=== PATIENT | female | born 1985 | race Caucasian/White ===

== ENCOUNTER → 2020-09-13 07:56 | Outpatient (BNVA) | payer OTHER, SELFPAY | PROVIDERS: Visit Provider Advanced Practice Midwife ==

== ENCOUNTER 2021-01-25 08:39 | Outpatient (REF) | payer OTHER, SELFPAY ==
[2021-01-25 12:17] LABS: Alanine Aminotransferase 10 U/L (0-31); Anion Gap 11 (12-20); Aspartate Amino Transferase 19 U/L (5-31); Blood Urea Nitrogen 14 mg/dL (9-16); Calcium 9.1 mg/dL (8.4-10.2); Carbon Dioxide 26 mmol/L (22-29); Chloride 107 mmol/L (96-108); Cholesterol 173 mg/dL; Estimated Glomerular Filt Rate > 60; Glucose Fasting 89 mg/dL (60-99); HDL Cholesterol 72 mg/dL; LDL Cholesterol Calculated 88 mg/dl; Potassium 4.5 mmol/L (3.3-5.1); Sodium 139 mmol/L (135-145); Triglycerides 67 mg/dL
== END 2021-01-25 08:40 | disposition home or self-care (01) ==
LOC: HO.HMGCLDS 08:39
PROVIDERS: PCP Internal Medicine; Visit Provider Internal Medicine
DX: Z00.00 Encounter for general adult medical examination without abnormal findings (principal); I10 Essential (primary) hypertension
CPT/HCPCS: 36415; 80048; 80061; 84450; 84460

== ENCOUNTER → 2021-09-19 07:57 | Outpatient (BNVA) | payer OTHER, SELFPAY | PROVIDERS: PCP Internal Medicine; Visit Provider Advanced Practice Midwife ==

== ENCOUNTER 2022-09-21 08:50 | Outpatient (REF) | payer OTHER, SELFPAY ==
[2022-09-21 11:21] LABS: MANUAL DIFF FLAG NO
[2022-09-21 11:33] LABS: Basophils Percent Auto 0.4 % (0-2); Eosinophils Absolute Auto 0.4 X10*3/uL (0.0-0.4); Eosinophils Percent Auto 5.2 % (0-4); Hematocrit 42.5 % (37.0-47.0); Hemoglobin 14.1 g/dl (12.0-16.0); Imm Gran Abs Auto 0.02 X10*3/uL (0.00-0.03); Imm Gran Pct Auto 0.3 % (0.0-0.4); Lymphocytes Absolute Auto 2.5 X10*3/uL (1.2-4.9); Mean Corpuscular HGB Conc 33.2 g/dl (31.0-35.0); Mean Corpuscular Hemoglobin 29.8 pg (27.0-33.0); Mean Corpuscular Volume 89.9 fL (80.0-98.0); Mean Platelet Volume 9.7 fL (9.4-12.3); Monocytes Absolute Auto 0.4 X10*3/uL (0.1-1.2); Monocytes Percent Auto 6.3 % (2-11); Neutrophils Absolute Auto 3.6 x10*3/uL (2.0-8.3); Neutrophils Percent Auto 51.8 % (45-73); Platelet Count 302 X10*3/uL (160-400); Red Blood Count 4.73 X10*6/uL (4.20-5.50); Red Cell Distribution Width 11.2 % (11.0-16.0); White Blood Count 6.9 X10*3/uL (4.8-10.8)
[2022-09-21 11:57] LABS: Alanine Aminotransferase 14 U/L (0-31); Anion Gap 12 (12-20); Aspartate Amino Transferase 18 U/L (5-31); Blood Urea Nitrogen 14 mg/dL (9-16); Calcium 9.7 mg/dL (8.4-10.2); Carbon Dioxide 26 mmol/L (22-29); Chloride 105 mmol/L (96-108); Cholesterol 203 mg/dL; Estimated Glomerular Filt Rate > 60; Glucose Fasting 90 mg/dL (60-99); HDL Cholesterol 74 mg/dL; LDL Cholesterol Calculated 117 mg/dl; Potassium 4.5 mmol/L (3.3-5.1); Sodium 138 mmol/L (135-145); Triglycerides 62 mg/dL
[2022-09-21 12:14] LABS: TSH reflex Free T4 1.56 uIU/mL (0.32-4.0); Vitamin D 25-OH Total 38.3 ng/mL (>30)
== END 2022-09-21 08:51 | disposition home or self-care (01) ==
LOC: HO.HMGCLDS 08:50
PROVIDERS: PCP Internal Medicine; Visit Provider Internal Medicine
DX: Z00.01 Encounter for general adult medical examination with abnormal findings (principal); L40.9 Psoriasis, unspecified; Z91.09 Other allergy status, other than to drugs and biological substances
CPT/HCPCS: 36415; 80048; 80061; 82306; 84443; 84450; 84460; 85025

== ENCOUNTER 2022-11-22 11:13 | Outpatient (REF) | payer OTHER, SELFPAY ==
[2022-12-06 13:39] LABS: HPV 16 RNA NOT DETECTED (NOT DETECTED); HPV mRNA E6/E7 rflx Detected (Not Detected)
== END 2022-11-22 11:14 | disposition home or self-care (01) ==
LOC: HO.LNP 11:13
PROVIDERS: PCP Internal Medicine; Visit Provider Advanced Practice Midwife
DX: Z01.419 Encounter for gynecological examination (general) (routine) without abnormal findings (principal); Z11.51 Encounter for screening for human papillomavirus (HPV)
CPT/HCPCS: 87624; 87625; 88142

== ENCOUNTER 2023-01-01 08:57 | Outpatient (REF) | payer OTHER, SELFPAY | END 2023-01-01 08:58 | disposition home or self-care (01) | LOC: HO.LNP 08:57 | PROVIDERS: PCP Internal Medicine; Visit Provider Obstetrics & Gynecology | DX: R87.810 Cervical high risk human papillomavirus (HPV) DNA test positive (principal); R87.610 Atypical squamous cells of undetermined significance on cytologic smear of cervix (ASC-US) | CPT/HCPCS: 57454; 88305 ==

== ENCOUNTER → 2023-01-29 08:46 | Outpatient (BNVA) | payer OTHER, SELFPAY | PROVIDERS: PCP Internal Medicine; Visit Provider Obstetrics & Gynecology | DX: R87.610 Atypical squamous cells of undetermined significance on cytologic smear of cervix (ASC-US) (principal); R87.810 Cervical high risk human papillomavirus (HPV) DNA test positive; Z30.09 Encounter for other general counseling and advice on contraception | CPT/HCPCS: 99212 ==

== ENCOUNTER 2023-09-24 10:34 | Outpatient (AMB) | payer OTHER, SELFPAY ==
--- NOTE | 2023-09-24 11:17 | A.OFFPC_ITS ---
Vital Signs 09/24/23 11:19 Height 5 ft 5 in Weight 166 lb BMI 27.6 BP 110/80 Blood Pressure Location Lt brachial Position Sitting Pulse 90 Pulse Source Pulse Oximeter Pulse Oximetry (%) 97 Oxygen Delivery Method Room Air Intake Visit Reasons: PE Intake Note: Pt is here today for her PE: Last papsmear 11/22/22 Is last menstrual period known: Yes Last menstrual period: 09/15/23 Allergies environmental Allergy (Intermediate, Uncoded 09/24/23 11:26) Nasal congestion Medication List - Last Reconciled 09/24/23 by Lilian Joseph MD apremilast (Otezla) 30 mg PO BID clobetasol 0.05% mL topical fexofenadine 60 mg PO BID Tobacco use date assessed: 09/24/23 Dental Screening Dental Screen Date: 09/24/23 Did you have a dental visit in the last 12 months?: Yes Did you have a dental problem in the last 6 months where you did not have access to dental care?: No Was dental information given to patient?: Patient has dentist HPI PE HPI Details 37-year-old lady here today for physical exam. She had a cervical cancer screening done November 2022 which showed ASCUS, currently being seen at [facility]. She sees Dr. Espinoza for psoriasis of scalp, currently on Otezla and clobetasol shampoo. She has been feeling well otherwise, with no complaints at present time. [facility], [facility] Medical History (Updated 09/24/23 @ 11:40 by Lilian Joseph MD) Vaccine refused by patient Psoriasis of scalp Environmental allergies Surgical History History of placement of ear tubes Family History Maternal Aunt Ovarian cancer Thyroid disorder Brother Substance use disorder Maternal Uncle Mental health disorder Social History Housing: House Alcohol intake: current Alcohol intake frequency: holidays/special occasions only Patient Tobacco Use Status: Never used Tobacco e-Cigarette/Vaping Use: Never Used service: No Current occupational status: employed Current occupation: [employer] Sexual orientation: Straight/Heterosexual Gender identity: Female Cognitive needs: No Hearing needs: No Vision needs: No Female Reproductive History Menstrual Age of Menarche: 13 Date of last menstrual period: 09/15/23 Questionnaire PHQ-9 Over the last 2 weeks, how often have you been bothered by any of the following problems? 1. Little interest or pleasure in doing things: not at all 2. Feeling down, depressed, or hopeless: not at all 3. Trouble falling or staying asleep, or sleeping too much: several days 4. Feeling tired or having little energy: nearly every day 6. Feeling bad about yourself - or that you are a failure or have let yourself or your family down: not at all 7. Trouble concentrating on things, such as reading the newspaper or watching television: not at all 8. Moving or speaking so slowly that other people could have noticed. Or the opposite - being so fidgety or restless that you have been moving around a lot more than usual: not at all 9. Thoughts that you would be better off or of hurting yourself in some way: not at all Depression Screening Interpretation: Negative Depression Screening Done: Yes 47387 - PHQ-9 Billing: Yes Source: Developed by Drs. Serg Martinez, Mag Rodriguez, Mohan Jain and colleagues, with an educational paradise from [employer]. Thrive Questionnaire Date Thrive assessed: 09/24/23 I am a: Patient What is your living situation today?: I have a steady place to live Within the past 12 months, did the food you bought not last and you didn't have the money to get more?: Never true Within the past 12 months, did you worry whether your food would run out before you got money to buy more?: Never true Do you have trouble paying for medicines?: No Do you have trouble getting transportation to medical appointments?: No Do you have trouble paying your heating and electricity bill?: No Do you have trouble taking care of your child, family member or friend?: No Do you have trouble with day-to-day activities such as bathing, preparing meals, shopping, managing finances, etc.?: No Are you currently unemployed and looking for a job?: No Are you interested in more education?: No THRIVE Score: 0 AUDIT C Alcohol Use Questionnaire (AUDIT-C) 1. How often do you have a drink containing alcohol?: 2-4 times a month 2. How many drinks containing alcohol do you have on a typical day when you are drinking?: 1 or 2 3. How often do you have six or more drinks on one occasion?: Never Total Score: 2 RUSSELL-7 AMB Questionnaire RUSSELL-7 Date RUSSELL - 7 assessed: 09/24/23 Feeling nervous, anxious, or on edge: 2 = More than half the days Not being able to stop or control worryin = More than half the days Worrying too much about different things: 2 = More than half the days Trouble relaxin = Several days Being so restless that it is hard to sit still: 0 = Not at all Becoming easily annoyed or irritable: 1 = Several days Feeling afraid as if something awful might happen: 1 = Several days Total RUSSELL-7 score (0-4 normal; 5-9 mild; 10-14 moderate; 15-21 severe): 9 Source: Developed by Drs. Serg Martinez, Mag Rodriguez, Mohan Jain and colleagues, with an educational paradise from [employer]. RUSSELL-7 Assessment Billing RUSSELL-7 Assessment Tool: RUSSELL-7 Assessment 26023 Review of Systems Const Denies body aches, Denies fatigue, Denies fever(s) and Denies headache(s) Eyes Denies change in vision ENT Denies dizziness, Denies headache(s), Denies nasal congestion and Denies nasal discharge Card Denies chest pain, Denies lightheadedness, Denies palpitations and Denies dyspnea Resp Denies chest congestion, Denies cough, Denies dyspnea and Denies wheezing GI Denies abdominal pain, Denies change in bowel habits and Denies heartburn Denies urinary frequency, Denies dysuria and Denies urinary urgency Musc Reports no additional complaints Skin/Breast Reports as per HPI, Denies breast swelling, Denies breast skin changes, Denies breast pain and Denies breast mass Neuro Denies dizziness and Denies headache(s) Psych Reports as per HPI Endo Denies fatigue, Denies polydipsia, Denies polyuria and Denies palpitations August/Lymph Denies easy bruising Aller/Immun Denies seasonal rhinorrhea and Denies wheezing Physical exam (Primary Care) Vital Signs: Last Vital Signs Pulse 90 02/05/24 11:19 BP 110/80 09/24/23 11:19 Pulse Ox 97 09/24/23 11:19 Oxygen Delivery Method Room Air 09/24/23 11:19 BMI result Body Mass Index 27.6 Tobacco/Smoking Status: Tobacco use Status Tobacco use date assessed 09/24/23 09/24/23 11:23 Patient Tobacco Use Status Never used Tobacco 09/24/23 11:23 e-Cigarette/Vaping Use Never Used 09/24/23 11:23 Depression Screening Interpretation: Negative Thrive Assessment: Date of Thrive Assessment Date Thrive assessed 09/24/23 09/24/23 11:23 Const General: healthy appearing, comfortable and no acute distress Nutritional Appearance: overweight Orientation/consciousness: patient oriented x3 HENMT Head: Yes normocephalic Ears: external ears normal, TM's normal bilaterally and EAC's normal General nose exam: Normal external nose present and No nasal discharge present Face and sinus: Yes face symmetric Mouth: Normal oral and palatal mucosa present, oropharynx normal and moist mucous membranes Eyes General: appearance normal, both eyes and all related structures Pupils: Equal, round and reactive pupils present EOM: EOMs intact bilaterally Neck Neck: Yes full ROM, Yes no lymphadenopathy and Yes supple Thyroid: Thyroid normal Chest Chest palpation & inspection: normal inspection of the chest Breast/axilla inspection: normal inspection of the breasts Breast/axilla palpation: normal palpation of the breasts Resp Effort & Inspection: normal respiratory effort and able to speak in complete sentences Auscultation: clear to auscultation bilaterally Cardio Palpation: normal PMI Rate: regular rate Rhythm: regular rhythm Heart sounds: S1 normal heart sound present and S2 normal heart sound present GI Inspection: Yes normal to inspection Palpation (GI): Soft to palpation, nontender, no guarding and no masses Auscultation: normal bowel sounds General: Yes no CVA tenderness and Yes deferred (Has appointment with her OB next week) Back/Spine/Pelvis Back: no CVA tenderness Cervical Spine: normal cervical lordosis and cervical ROM normal Thoracic/Lumbar Spine: thoracic and lumbar spine normal to inspection and thoraco-lumbar ROM normal Skin General skin exam: no rashes or lesions noted Neuro General: patient oriented x3, gait normal, moves all extremities, Normal light touch and pain sensation, no focal motor deficits and CN's II-XI intact bilaterally Cranial nerves: Yes Equal, round and reactive pupils present Cognition (Neuro): normal cognition Gait exam (Neuro): Normal gait present Extrem General: Yes normal to inspection, Yes full ROM, Yes no joint enlargement, Yes no clubbing, cyanosis or edema, Yes no calf tenderness and Yes normal gait Psych Appearance: grossly normal and well kempt Mental Status: mental status grossly normal Speech and movement: Normal speech and movement present Affect: normal affect Thought process: Normal thought process present Assessment and Plan Assessment & Plan (1) Annual visit for general adult medical examination with abnormal findings: Code(s): Z00.01 - Encounter for general adult medical examination with abnormal findings Plan: Will check appropriate labs. Recommended dental visit every 6 months and regular eye exams, at least every 2 years. Take adequate calcium in diet and vitamin-D 3 at 2000 IU per cap once a day, in addition to weight-bearing exer cises to help maintain good muscle tone and weight control. Instructed to do self-breast exam, and recommended to get yearly mammogram, starting at age 40. Goes to [facility] for her routine Pap and pelvic exam, currently up-to-date. Declines getting vaccines. (2) Psoriasis of scalp: Comment: ff'd by Dr Espinoza Code(s): L40.9 - Psoriasis, unspecified Plan: Currently on Otezla and clobetasol shampoo, followed by Dr. Espinoza (3) Environmental allergies: Comment: ff'd by Dr Dante Duong on oral allergy Code(s): Z91.09 - Other allergy status, other than to drugs and biological substances (4) Vaccine refused by patient: Code(s): Z28.20 - Immunization not carried out because of patient decision for unspecified reason Orders: Orders Hemoglobin and Hematocrit 09/24/23 Z00.01 - Encounter for general adult medical examination with abnormal findings, Z13.220 - Encounter for screening for lipoid disorders, Z13.1 - Encounter for screening for diabetes mellitus, L40.9 - Psoriasis, unspecified Alanine Aminotransferase 09/24/23 Z00.01 - Encounter for general adult medical examination with abnormal findings, Z13.220 - Encounter for screening for lipoid disorders, Z13.1 - Encounter for screening for diabetes mellitus, L40.9 - Psoriasis, unspecified Aspartate Amino Transferase 09/24/23 Z00.01 - Encounter for general adult medical examination with abnormal findings, Z13.220 - Encounter for screening for lipoid disorders, Z13.1 - Encounter for screening for diabetes mellitus, L40.9 - Psoriasis, unspecified Glucose Fasting 09/24/23 Z00.01 - Encounter for general adult medical examination with abnormal findings, Z13.220 - Encounter for screening for lipoid disorders, Z13.1 - Encounter for screening for diabetes mellitus, L40.9 - Psoriasis, unspecified Vitamin D 25-OH Total 09/24/23 Z00.01 - Encounter for general adult medical examination with abnormal findings, Z13.220 - Encounter for screening for lipoid disorders, Z13.1 - Encounter for screening for diabetes mellitus, L40.9 - Psoriasis, unspecified Lipid Panel 09/24/23 Z00.01 - Encounter for general adult medical examination with abnormal findings, Z13.220 - Encounter for screening for lipoid disorders, Z13.1 - Encounter for screening for diabetes mellitus, L40.9 - Psoriasis, unspecified Coding Level of Care Code Est Pt Prev Care 18-39y(11266) Diagnoses Annual visit for general adult medical examination with abnormal findings Z00.01 Psoriasis of scalp L40.9 Environmental allergies Z91.09 Vaccine refused by patient Z28.20 Additional Codes RUSSELL-7 Assessment Billing - RUSSELL-7 Assessment Tool: RUSSELL-7 Assessment 78801 ([id number])
[2023-09-24 11:19] VITALS: BP 110/80; PULSE 90; O2SAT 97; BMI 27.6
== END 2023-09-24 11:53 | disposition home or self-care (01) ==
PROVIDERS: Visit Provider Internal Medicine
DX: Z00.00 Encounter for general adult medical examination without abnormal findings (principal); L40.9 Psoriasis, unspecified; Z91.09 Other allergy status, other than to drugs and biological substances; Z28.20 Immunization not carried out because of patient decision for unspecified reason
CPT/HCPCS: 99395

== ENCOUNTER 2023-09-24 11:42 | Outpatient (REF) | payer OTHER, SELFPAY ==
[2023-09-24 13:33] LABS: Hematocrit 40.4 % (37.0-47.0); Hemoglobin 13.6 g/dl (12.0-16.0)
[2023-09-24 14:08] LABS: Alanine Aminotransferase 16 U/L (0-31); Aspartate Amino Transferase 19 U/L (5-31); Cholesterol 206 mg/dL (<200); Glucose Fasting 88 mg/dL (60-99); HDL Cholesterol 88 mg/dL (>40); LDL Cholesterol Calculated 108 mg/dL (<100); Triglycerides 54 mg/dL (<150); Vitamin D 25-OH Total 86.5 ng/mL (>30)
== END 2023-09-24 11:43 | disposition home or self-care (01) ==
LOC: HO.HMGCLDS 11:42
PROVIDERS: PCP Internal Medicine; Visit Provider Internal Medicine
DX: Z00.01 Encounter for general adult medical examination with abnormal findings (principal); L40.9 Psoriasis, unspecified; Z13.1 Encounter for screening for diabetes mellitus; Z13.220 Encounter for screening for lipoid disorders
CPT/HCPCS: 36415; 80061; 82306; 82947; 84450; 84460; 85014; 85018

== ENCOUNTER 2023-12-04 09:31 | Outpatient (REF) | payer OTHER, SELFPAY ==
[2023-12-07 23:03] LABS: HPV 16 RNA NOT DETECTED (NOT DETECTED); HPV mRNA E6/E7 rflx Detected (Not Detected)
== END 2023-12-04 09:32 | disposition home or self-care (01) ==
LOC: HO.LNP 09:31
PROVIDERS: PCP Internal Medicine; Visit Provider Advanced Practice Midwife
DX: Z01.419 Encounter for gynecological examination (general) (routine) without abnormal findings (principal); Z11.51 Encounter for screening for human papillomavirus (HPV)
CPT/HCPCS: 87624; 87625; 88142; 99395

== ENCOUNTER 2023-12-04 09:31 | Outpatient (AMB) | payer OTHER, SELFPAY ==
--- NOTE | 2023-12-04 09:33 | MHC.OFFVIS ---
Intake Vital Signs 12/04/23 09:38 Height 5 ft 5 in Weight 166 lb BMI 27.6 BP 100/62 Intake Visit Reasons: Annual Oak Tanner: Oak Tanner Present (Anastasia) Allergies environmental Allergy (Intermediate, Uncoded 12/04/23 09:42) Nasal congestion Is last menstrual period known: Yes Last menstrual period: 11/05/23 HPI HPI Comments History of Present Illness Details She is a premenopausal woman presenting for annual examination. Doing well with no concerns. She tries to eat healthy and stays active with exercise. Regular monthly menses. Currently has a menstrual cycle today. Currently is sexually active, same long-term monogamous relationship. She denies vaginal itching and irritation. STI screening offered; she declined. She feels safe at home. Denies family history of breast or colon cancer. Family history of ovarian cancer. Last pap smear ascus positive HPV, couple biopsies were negative in 2022. [facility] Medical History Vaccine refused by patient Psoriasis of scalp Environmental allergies Surgical History History of placement of ear tubes Family History Maternal Aunt Ovarian cancer Thyroid disorder Brother Substance use disorder Maternal Uncle Mental health disorder Social History Housing: House Alcohol intake: current Alcohol intake frequency: holidays/special occasions only Patient Tobacco Use Status: Never used Tobacco e-Cigarette/Vaping Use: Never Used service: No Current occupational status: employed Current occupation: [employer] Sexual orientation: Straight/Heterosexual Gender identity: Female Cognitive needs: No Hearing needs: No Vision needs: No Female Reproductive History Menstrual Age of Menarche: 13 Date of last menstrual period: 11/05/23 Total pregnancies: 0 Date of last pap smear: 11/22/22 (ascus +hpv) History of abnormal pap smear: Yes (01/09 colpo) Review of Systems Const All systems reviewed & are unremarkable except as noted in HPI and below Reports as per HPI Eyes Reports no additional complaints ENT Reports no additional complaints Card Reports no additional complaints Resp Reports no additional complaints GI Reports as per HPI and Reports no additional complaints Reports as per HPI Musc Reports no additional complaints Skin/Breast Reports as per HPI Neuro Reports no additional complaints Psych Reports no additional complaints Endo Reports no additional complaints August/Lymph Reports no additional complaints Aller/Immun Reports no additional complaints Physical Exam Vital Signs: Last Vital Signs BP 100/62 12/04/23 09:38 BMI result Body Mass Index 27.6 Const General: cooperative, healthy appearing, no acute distress, well developed and alert Orientation/consciousness: patient oriented x3 HEENT Head: Yes normal to inspection Eyes General: appearance normal, both eyes and all related structures Neck Neck: Yes normal visual inspection Thyroid: Thyroid normal Chest Chest palpation & inspection: normal inspection of the chest and other (no puckering, dimpling, peau de orange, retraction, discharge, masses) Breast/axilla inspection: normal inspection of the breasts Breast/axilla palpation: normal palpation of the breasts Resp Effort & Inspection: normal respiratory effort GI Inspection: Yes normal to inspection Palpation (GI): Soft to palpation Rectal Exam - Female: deferred General: Yes bladder normal to palpation External Female Exam: normal external appearance and normal appearance of the urethra Speculum Exam - Vagina: normal appearance of the vagina, normal palpation, normal vaginal discharge and vaginal bleeding Speculum Exam - Cervix: normal appearance of the cervix and normal palpation Bimanual exam- vagina & uterus: normal bimanual exam, normal palpation, uterine size normal, bladder normal to palpation, normal palpation and non-tender Bimanual Exam- Adnexa, other: no masses OB/external & speculum: vaginal bleeding Skin General skin exam: no rashes or lesions noted Rashes: no rashes Neuro General: patient oriented x3 Cognition (Neuro): normal cognition Extrem General: Yes normal to inspection Psych Attitude: cooperative Thought process: Normal thought process present Assessment & Plan Assessment & Plan (1) Encounter for well woman exam with routine gynecological exam: Code(s): Z01.419 - Encounter for gynecological examination (general) (routine) without abnormal findings Plan Discussed: Current recommendations for pap smears per ASCCP guidelines. Await Pap results for plan of care. Breast awareness and periodic breast exams. Maintain a healthy lifestyle including a well balanced diet and routine exercise. Use condoms for STI and prevention. Patient verbalizes understanding and agrees to the plan of care. She was given opportunity to ask questions and all questions were answered to the best of my ability. RTO in one year for annual tester electronic scale examination. This note is constructed using voice recognition software. While every effort has been made to ensure accuracy, consultant rn errors may have been included. Coding Level of Care Code Est Pt Prev Care 18-39y(38917) Diagnoses Encounter for well woman exam with routine gynecological exam Z01.419
[2023-12-04 09:38] VITALS: BP 100/62; BMI 27.6
== END 2023-12-04 10:09 | disposition home or self-care (01) ==
PROVIDERS: PCP Internal Medicine; Visit Provider Advanced Practice Midwife
DX: Z01.419 Encounter for gynecological examination (general) (routine) without abnormal findings (principal)
CPT/HCPCS: 99395

== ENCOUNTER 2024-01-08 09:05 | Outpatient (AMB) | payer OTHER, SELFPAY ==
--- NOTE | 2024-01-08 09:32 | MHC.OFFVIS ---
Vital Signs 01/08/24 09:41 Height 5 ft 5 in Weight 165 lb 5.547 oz BMI 27.5 BP 110/62 Intake Visit Reasons: Colposcopy Dog Food Dough Mixer Required: No Information Interpreted: non-clinical & clinical Guest Relations Representative: Guest Relations Representative Present (Yolanda Sweeney MARYAdriana) Accompanied by: Self / Same As Patient Allergies environmental Allergy (Intermediate, Uncoded 01/08/24 09:42) Nasal congestion Is last menstrual period known: Yes Last menstrual period: 01/02/24 HPI Comments Details: Presenting for colposcopy regarding ascus/HPV E6 E7 positive PFSH Medical History Vaccine refused by patient Psoriasis of scalp Environmental allergies Surgical History History of placement of ear tubes Family History Maternal Aunt Ovarian cancer Thyroid disorder Brother Substance use disorder Maternal Uncle Mental health disorder Social History Housing: House Alcohol intake: current Alcohol intake frequency: holidays/special occasions only Patient Tobacco Use Status: Never used Tobacco e-Cigarette/Vaping Use: Never Used service: No Current occupational status: employed Current occupation: [employer] Sexual orientation: Straight/Heterosexual Gender identity: Female Cognitive needs: No Hearing needs: No Vision needs: No Female Reproductive History Menstrual Age of Menarche: 13 Date of last menstrual period: 01/02/24 Review of Systems Const All systems reviewed & are unremarkable except as noted in HPI and below Reports as per HPI and Reports no additional complaints GI Reports no additional complaints Reports no additional complaints Physical Exam Vital Signs: Last Vital Signs BP 110/62 01/08/24 09:41 BMI result Body Mass Index 27.5 Office Procedures Colposcopy Colposcopy: Pre-Procedure Counseling: Before beginning the procedure, I conducted comprehensive counseling with the patient. We thoroughly discussed the procedure itself, including its details, alternatives, and all associated risks. This included but not limited to the following complications such as bleeding, infection, and injury to the vagina, bladder, and vessels, as well as the potential need for transfusion with all its associated risks. Subsequently, the patient sign the consent. Pap smear result: Ascus/HPV E6/E7 positive Urine test in office = Negative Procedure: During the procedure, the following steps were performed: A speculum was inserted, and acetic acid was applied. Colposcopy was conducted, allowing visualization of the transformation zone. Acetowhite lesions were identified at the 5+6+9+11+12+1+3 o'clock position. Cervical biopsies were obtained from the 5+6+9+11+12+1+3o'clock position, followed by an endocervical curettage (ECC). Vaginoscopy of the upper vagina revealed no evidence of aceto-white lesions. Hemostasis was achieved using Monsel solution, and the patient tolerated the procedure well. Post-Procedure Instructions: The patient was advised to promptly contact the office or the after hours answering service or go to the emergency room if experiencing a temperature exceeding 100.4?F, abdominal pain, nausea/vomiting, or bleeding. Additionally, the patient was instructed to abstain from vaginal intercourse and bathtub use. The patient confirmed understanding of these instructions. Discharge Instructions: The patient was instructed to schedule a follow-up appointment in 2 weeks for further evaluation and management. Please note that this note was generated using a voice recognition program, and errors may have occurred during soldering machine feeder. [id number] of cervix including upper vagina with biopsy and ECC Procedure code (CPT) selection complete Results AMB Test Urine AMB Test Urine Negative Last Edit by Yolanda Sweeney CMA on 01/08/24 09:43 Results Reviewed Results Reviewed: Laboratory Last Values [facility]st Clinic Negative 01/08/24 09:43 Assessment & Plan Assessment & Plan (1) ASCUS with positive high risk HPV cervical: Code(s): R87.610 - Atypical squamous cells of undetermined significance on cytologic smear of cervix (ASC-US); R87.810 - Cervical high risk human papillomavirus (HPV) DNA test positive Category: Medical Plan: Colposcopy done, see procedure note Orders: Orders AMB HCG Urine Test Today Z32.02 - Encounter for test, result negative AMB Colposcopy Today R87.610 - Atypical squamous cells of undetermined significance on cytologic smear of cervix (ASC-US), R87.810 - Cervical high risk human papillomavirus (HPV) DNA test positive Coding Level of Care Code Procedure Only Diagnoses ASCUS with positive high risk HPV cervical R87.610; R87.810 CPT Codes Colposcopy - CPT: 65666-Kshmevilw of cervix including upper vagina with biopsy and ECC ([id number])
[2024-01-08 09:41] VITALS: BP 110/62; BMI 27.5
== END 2024-01-08 11:22 | disposition home or self-care (01) ==
PROVIDERS: PCP Internal Medicine; Visit Provider Obstetrics & Gynecology
DX: R87.610 Atypical squamous cells of undetermined significance on cytologic smear of cervix (ASC-US) (principal); R87.810 Cervical high risk human papillomavirus (HPV) DNA test positive; Z32.02 Encounter for pregnancy test, result negative
CPT/HCPCS: 57454

== ENCOUNTER 2024-01-08 09:05 | Outpatient (REF) | payer OTHER, SELFPAY | END 2024-01-08 09:06 | disposition home or self-care (01) | LOC: HO.LNP 09:05 | PROVIDERS: PCP Internal Medicine; Visit Provider Obstetrics & Gynecology | DX: R87.610 Atypical squamous cells of undetermined significance on cytologic smear of cervix (ASC-US) (principal); R87.810 Cervical high risk human papillomavirus (HPV) DNA test positive | CPT/HCPCS: 57454; 81025; 88305; 88342; 88360 ==

== ENCOUNTER 2024-02-13 07:22 | Outpatient (AMB) | payer OTHER, SELFPAY ==
--- NOTE | 2024-02-13 07:29 | MHC.OFFVIS ---
Vital Signs 02/13/24 07:31 Height 5 ft 5 in Weight 165 lb 5.547 oz BMI 27.5 BP 116/72 Intake Visit Reasons: colpo results Legal Director Required: No Information Interpreted: non-clinical & clinical Accompanied by: Self / Same As Patient Allergies environmental Allergy (Intermediate, Uncoded 02/13/24 07:32) Nasal congestion Is last menstrual period known: Yes Last menstrual period: 01/28/24 HPI Comments Details: Presenting post colpo for follow-up. The patient is doing well with no complaints. The pathology showed the following: A. Endocervix, curettage: Squamous and endocervical glandular epithelium; negative for dysplasia. B. Cervix, 1:00, biopsy: Squamous and endocervical glandular mucosa; negative for dysplasia. C. Cervix, 3:00, biopsy: Squamous and endocervical glandular mucosa; negative for dysplasia. D. Cervix, 5:00, biopsy: Squamous and endocervical glandular mucosa with inflammation and reactive changes; negative for dysplasia. E. Cervix, 6:00, biopsy: Squamous and endocervical glandular mucosa with inflammation and reactive changes; negative for dysplasia. F. Cervix, 9:00, biopsy: Squamous and endocervical glandular mucosa with inflammation and reactive changes; negative for dysplasia. G. Cervix, 11:00, biopsy: Squamous and endocervical glandular mucosa with inflammation and reactive changes; negative for dysplasia. H. Cervix, 12:00, biopsy: Squamous and endocervical glandular mucosa; negative for dysplasia. [facility] Medical History Vaccine refused by patient Psoriasis of scalp Environmental allergies Surgical History History of placement of ear tubes Family History Maternal Aunt Ovarian cancer Thyroid disorder Brother Substance use disorder Maternal Uncle Mental health disorder Social History Housing: House Alcohol intake: current Alcohol intake frequency: holidays/special occasions only Patient Tobacco Use Status: Never used Tobacco e-Cigarette/Vaping Use: Never Used service: No Current occupational status: employed Current occupation: [employer] Sexual orientation: Straight/Heterosexual Gender identity: Female Cognitive needs: No Hearing needs: No Vision needs: No Female Reproductive History Menstrual Age of Menarche: 13 Date of last menstrual period: 01/28/24 Review of Systems Const All systems reviewed & are unremarkable except as noted in HPI and below Reports as per HPI and Reports no additional complaints GI Reports no additional complaints Reports no additional complaints Assessment & Plan Assessment & Plan (1) ASCUS with positive high risk HPV cervical: Code(s): R87.610 - Atypical squamous cells of undetermined significance on cytologic smear of cervix (ASC-US); R87.810 - Cervical high risk human papillomavirus (HPV) DNA test positive Category: Medical Plan: Discussed with the patient the pathology results of the colposcopy biopsies & endocervical curettage ( negative). Discussed with the patient the sensitivity specificity, positive and negative predictive value in detecting cervical cancer in addition discussed the regression, persistence and progression rates. Recommended co-testing in 12 months, if cytology and or HPV are abnormal will proceed was colposcopy biopsy and endocervical curettage. Instructions given to the patient to schedule a co test appointment in 1 year. All questions answered the patient verbalized understanding. Coding Level of Care Code Est Pt Level 3 (86258) Diagnoses ASCUS with positive high risk HPV cervical R87.610; R87.810
[2024-02-13 07:31] VITALS: BP 116/72; BMI 27.5
== END 2024-02-13 07:48 | disposition home or self-care (01) ==
PROVIDERS: PCP Internal Medicine; Visit Provider Obstetrics & Gynecology
DX: R87.610 Atypical squamous cells of undetermined significance on cytologic smear of cervix (ASC-US) (principal); R87.810 Cervical high risk human papillomavirus (HPV) DNA test positive
CPT/HCPCS: 99213

== ENCOUNTER → 2024-02-13 07:22 | Outpatient (BNVA) | payer OTHER, SELFPAY | PROVIDERS: PCP Internal Medicine; Visit Provider Obstetrics & Gynecology | DX: R87.610 Atypical squamous cells of undetermined significance on cytologic smear of cervix (ASC-US) (principal); R87.810 Cervical high risk human papillomavirus (HPV) DNA test positive | CPT/HCPCS: 99212 ==

== ENCOUNTER 2024-09-29 08:18 | Outpatient (AMB) | payer OTHER, SELFPAY ==
--- NOTE | 2024-09-29 08:48 | MHC.PC.OV ---
Vital Signs 09/29/24 09:04 Height 5 ft 5 in Weight 167 lb BMI 27.8 BP 102/78 Blood Pressure Location Rt brachial Position Sitting Respiration 15 Pulse 67 Pulse Source Pulse Oximeter Temp 98.1 F Temp Source Oral Pulse Oximetry (%) 100 Oxygen Delivery Method Room Air Intake Visit Reasons: PE Intake Note: Pt is here today for her PE: Last papsmear 12/05/23 Is last menstrual period known: Yes Last menstrual period: 09/26/24 Allergies environmental Allergy (Intermediate, Uncoded 09/29/24 09:15) Nasal congestion Medication List - Last Reconciled 09/29/24 by Lilian Joseph MD apremilast (Otezla) 30 mg PO BID fexofenadine 60 mg PO BID Tobacco use date assessed: 09/29/24 Dental Screening Dental Screen Date: 09/29/24 Did you have a dental visit in the last 12 months?: Yes Did you have a dental problem in the last 6 months where you did not have access to dental care?: No Was dental information given to patient?: Patient has dentist HPI PE HPI Details 38-year-old lady with history of psoriasis currently on Otezla, followed by Dr. Espinoza, has seasonal environmental allergies currently taking fexofenadine and receiving sublingual immunotherapy from [facility], here today for physical exam. She states that her scalp psoriasis has cleared up with taking Otezla and has decrease dose now to just once a day. She goes to [facility] for her routine Pap and pelvic exam, up-to-date with cervical cancer screening and is scheduled again for November this year for her routine Pap and pelvic exam. Does not get any vaccines. Has been feeling well with no new complaints at present time [facility] Medical History Vaccine refused by patient Psoriasis of scalp Environmental allergies Surgical History History of placement of ear tubes Family History Maternal Aunt Ovarian cancer Thyroid disorder Brother Substance use disorder Maternal Uncle Mental health disorder Social History Housing: House Alcohol intake: current Alcohol intake frequency: holidays/special occasions only Patient Tobacco Use Status: Never used Tobacco e-Cigarette/Vaping Use: Never Used service: No Current occupational status: employed Current occupation: [employer] Sexual orientation: Straight/Heterosexual Gender identity: Female Cognitive needs: No Hearing needs: No Vision needs: No Female Reproductive History Menstrual Age of Menarche: 13 Date of last menstrual period: 09/26/24 Questionnaire PHQ-9 Over the last 2 weeks, how often have you been bothered by any of the following problems? 1. Little interest or pleasure in doing things: not at all 2. Feeling down, depressed, or hopeless: not at all 3. Trouble falling or staying asleep, or sleeping too much: not at all 4. Feeling tired or having little energy: more than half the days 5. Poor appetite or overeating: not at all 6. Feeling bad about yourself - or that you are a failure or have let yourself or your family down: not at all 7. Trouble concentrating on things, such as reading the newspaper or watching television: not at all 8. Moving or speaking so slowly that other people could have noticed. Or the opposite - being so fidgety or restless that you have been moving around a lot more than usual: not at all 9. Thoughts that you would be better off or of hurting yourself in some way: not at all Total score: 2 Depression Screening Interpretation: Negative Depression Screening Done: Yes 05364 - PHQ-9 Billing: Yes Source: Developed by Drs. Serg Martinez, Mag Rodriguez, Mohan Jain and colleagues, with an educational paradise from [employer]. Thrive Questionnaire Date Thrive assessed: 09/22/24 I am a: Patient What is your living situation today?: I have a steady place to live Within the past 12 months, did the food you bought not last and you didn't have the money to get more?: Never true Within the past 12 months, did you worry whether your food would run out before you got money to buy more?: Never true Do you have trouble paying for medicines?: No Do you have trouble getting transportation to medical appointments?: No Do you have trouble paying your heating and electricity bill?: No Do you have trouble taking care of your child, family member or friend?: No Do you have trouble with day-to-day activities such as bathing, preparing meals, shopping, managing finances, etc.?: No Are you currently unemployed and looking for a job?: No Are you interested in more education?: No Please select the resources that you would like help with: None Currently or been in a relationship where the following occur: No concerns reported THRIVE Score: 0 AUDIT C Alcohol Use Questionnaire (AUDIT-C) 1. How often do you have a drink containing alcohol?: 2-4 times a month 2. How many drinks containing alcohol do you have on a typical day when you are drinking?: 1 or 2 3. How often do you have six or more drinks on one occasion?: Never Total Score: 2 RUSSELL-7 AMB Questionnaire RUSSELL-7 Date RUSSELL - 7 assessed: 09/29/24 Feeling nervous, anxious, or on edge: 1 = Several days Not being able to stop or control worryin = Several days Worrying too much about different things: 1 = Several days Trouble relaxin = Not at all Being so restless that it is hard to sit still: 0 = Not at all Becoming easily annoyed or irritable: 1 = Several days Feeling afraid as if something awful might happen: 0 = Not at all Total RUSSELL-7 score (0-4 normal; 5-9 mild; 10-14 moderate; 15-21 severe): 4 Source: Developed by Drs. Serg Martinez, Mag Rodriguez, Mohan Jain and colleagues, with an educational paradise from [employer]. RUSSELL-7 Assessment Billing RUSSELL-7 Assessment Tool: RUSSELL-7 Assessment 63663 Review of Systems Const Denies body aches, Denies fatigue, Denies fever(s) and Denies headache(s) Eyes Denies change in vision ENT Details: Gets dental cleaning every six-months Denies dizziness, Denies headache(s), Denies nasal congestion and Denies nasal discharge Card Denies chest pain, Denies lightheadedness, Denies palpitations and Denies dyspnea Resp Denies chest congestion, Denies cough, Denies dyspnea and Denies wheezing GI Denies abdominal pain, Denies change in bowel habits and Denies heartburn Denies urinary frequency, Denies dysuria and Denies urinary urgency Musc Reports no additional complaints Skin/Breast Denies breast swelling, Denies breast skin changes, Denies breast pain and Denies breast mass Neuro Denies dizziness and Denies headache(s) Psych Reports no additional complaints Endo Denies fatigue, Denies polydipsia, Denies polyuria and Denies palpitations August/Lymph Denies easy bruising Aller/Immun Denies seasonal rhinorrhea and Denies wheezing Physical exam (Primary Care) Vital Signs: Last Vital Signs Temp 98.1 F 09/29/24 09:04 Pulse 67 09/29/24 09:04 Resp 15 09/29/24 09:04 BP 102/78 09/29/24 09:04 Pulse Ox 100 09/29/24 09:04 Oxygen Delivery Method Room Air 09/29/24 09:04 BMI result Body Mass Index 27.8 Tobacco/Smoking Status: Tobacco use Status Tobacco use date assessed 09/29/24 09/29/24 08:49 Patient Tobacco Use Status Never used Tobacco 09/29/24 08:48 e-Cigarette/Vaping Use Never Used 09/29/24 08:48 PHQ-9: PHQ-9 Score PHQ-9: Total score 2 09/29/24 09:08 Depression Screening Interpretation: Negative Thrive Assessment: Date of Thrive Assessment Date Thrive assessed 09/22/24 09/29/24 08:48 Currently or been in a relationship where the following occur: No concerns reported Advance Care Planning discussion: Completed/Scanned Date of discussion: 09/29/24 Who was present: Patient Forms completed: Health Care Proxy Time spent: 16-45 minutes Actual minutes spent: 2 Const General: comfortable and no acute distress Nutritional Appearance: overweight Orientation/consciousness: patient oriented x3 HENMT Head: Yes normocephalic and No scalp lesion Ears: external ears normal, TM's normal bilaterally and EAC's normal General nose exam: Normal external nose present and No nasal discharge present Face and sinus: Yes face symmetric Mouth: Normal oral and palatal mucosa present, oropharynx normal and moist mucous membranes Eyes General: appearance normal, both eyes and all related structures Pupils: Equal, round and reactive pupils present EOM: EOMs intact bilaterally Neck Neck: Yes full ROM, Yes no lymphadenopathy and Yes supple Thyroid: Thyroid normal Chest Chest palpation & inspection: normal inspection of the chest Breast/axilla inspection: normal inspection of the breasts Breast/axilla palpation: normal palpation of the breasts Resp Effort & Inspection: normal respiratory effort and able to speak in complete sentences Auscultation: clear to auscultation bilaterally Cardio Palpation: normal PMI Rate: regular rate Rhythm: regular rhythm Heart sounds: S1 normal heart sound present and S2 normal heart sound present GI Inspection: Yes normal to inspection Palpation (GI): Soft to palpation, nontender, no guarding and no masses Auscultation: normal bowel sounds General: Yes no CVA tenderness and Yes deferred (Has appointment with her OB next week) Back/Spine/Pelvis Back: no CVA tenderness Cervical Spine: normal cervical lordosis and cervical ROM normal Thoracic/Lumbar Spine: thoracic and lumbar spine normal to inspection and thoraco-lumbar ROM normal Skin General skin exam: no rashes or lesions noted Neuro General: patient oriented x3, gait normal, moves all extremities, Normal light touch and pain sensation, no focal motor deficits and CN's II-XI intact bilaterally Cranial nerves: Yes Equal, round and reactive pupils present Cognition (Neuro): normal cognition Gait exam (Neuro): Normal gait present Extrem General: Yes normal to inspection, Yes full ROM, Yes no joint enlargement, Yes no clubbing, cyanosis or edema, Yes no calf tenderness and Yes normal gait Psych Appearance: grossly normal and well kempt Mental Status: mental status grossly normal Speech and movement: Normal speech and movement present Affect: normal affect Thought process: Normal thought process present Coding Level of Care Code Est Pt Prev Care 18-39y(64419) Diagnoses Annual visit for general adult medical examination with abnormal findings Z00.01 Environmental allergies Z91.09 Psoriasis of scalp L40.9 Encounter for counseling regarding advance directives Z71.89 Additional Codes PHQ-9 - 35933 - PHQ-9 Billing: Yes ([id number]) RUSSELL-7 Assessment Billing - RUSSELL-7 Assessment Tool: RUSSELL-7 Assessment 69436 ([id number]) Vital Signs *Quality* - Advance Care Planning discussion: Completed/Scanned ([id number]) Vital Signs *Quality* - Time spent: 16-45 minutes ([id number]) Assessment & Plan Assessment & Plan (1) Annual visit for general adult medical examination with abnormal findings: Code(s): Z00.01 - Encounter for general adult medical examination with abnormal findings Plan: Will check appropriate labs. Continue with rest dental visit every 6 months and regular eye exams, at least every 2 years. Take adequate calcium in diet and vitamin-D 3 at 2000 IU per cap once a day, in addition to weight-bearing exercises to help maintain good muscle tone and weight control. Instructed to do self-breast exam, and recommended to get yearly mammogram, starting at age 40. Has an appointment already with [facility] for her routine Pap and pelvic exam scheduled later this year. Immunization declined (2) Environmental allergies: Comment: ff'd by Dr Dante Duong on oral allergy Code(s): Z91.09 - Other allergy status, other than to drugs and biological substances Category: Medical Plan: Currently receiving sublingual immunotherapy at [facility], takes fexofenadine as needed for seasonal allergy (3) Psoriasis of scalp: Comment: ff'd by Dr Espinoza Code(s): L40.9 - Psoriasis, unspecified Category: Medical Plan: Currently on Otezla with dose now decreased just once a day, followed by [facility] (4) Encounter for counseling regarding advance directives: Code(s): Z71.89 - Other specified counseling Plan: Initiated the conversation about Advanced Directives. Advanced Directives help patients prepare for current and future decisions about their medical treatment and place of care. Discussed with patient that it is a process where a patients current condition and prognosis are reviewed, their wishes for information regarding their illness are elicited, and likely medical dilemmas are presented and options discussed. Healthcare proxy form completed today. The form can be amended as needed, reviewed yearly and make changes as needed Orders: Orders Complete Blood Count Auto Diff Today L40.9 - Psoriasis, unspecified, Z00.01 - Encounter for general adult medical examination with abnormal findings, Z13.1 - Encounter for screening for diabetes mellitus, Z13.220 - Encounter for screening for lipoid disorders, Z71.89 - Other specified counseling, Z83.49 - Family history of other endocrine, nutritional and metabolic diseases, Z91.09 - Other allergy status, other than to drugs and biological substances Alanine Aminotransferase Today L40.9 - Psoriasis, unspecified, Z00.01 - Encounter for general adult medical examination with abnormal findings, Z13.1 - Encounter for screening for diabetes mellitus, Z13.220 - Encounter for screening for lipoid disorders, Z71.89 - Other specified counseling, Z83.49 - Family history of other endocrine, nutritional and metabolic diseases, Z91.09 - Other allergy status, other than to drugs and biological substances TSH reflex Free T4 Today L40.9 - Psoriasis, unspecified, Z00.01 - Encounter for general adult medical examination with abnormal findings, Z13.1 - Encounter for screening for diabetes mellitus, Z13.220 - Encounter for screening for lipoid disorders, Z71.89 - Other specified counseling, Z83.49 - Family history of other endocrine, nutritional and metabolic diseases, Z91.09 - Other allergy status, other than to drugs and biological substances Basic Metabolic Panel Fasting Today L40.9 - Psoriasis, unspecified, Z00.01 - Encounter for general adult medical examination with abnormal findings, Z13.1 - Encounter for screening for diabetes mellitus, Z13.220 - Encounter for screening for lipoid disorders, Z71.89 - Other specified counseling, Z83.49 - Family history of other endocrine, nutritional and metabolic diseases, Z91.09 - Other allergy status, other than to drugs and biological substances Aspartate Amino Transferase Today L40.9 - Psoriasis, unspecified, Z00.01 - Encounter for general adult medical examination with abnormal findings, Z13.1 - Encounter for screening for diabetes mellitus, Z13.220 - Encounter for screening for lipoid disorders, Z71.89 - Other specified counseling, Z83.49 - Family history of other endocrine, nutritional and metabolic diseases, Z91.09 - Other allergy status, other than to drugs and biological substances Lipid Panel Today L40.9 - Psoriasis, unspecified, Z00.01 - Encounter for general adult medical examination with abnormal findings, Z13.1 - Encounter for screening for diabetes mellitus, Z13.220 - Encounter for screening for lipoid disorders, Z71.89 - Other specified counseling, Z83.49 - Family history of other endocrine, nutritional and metabolic diseases, Z91.09 - Other allergy status, other than to drugs and biological substances Vitamin D 25-OH Total Today L40.9 - Psoriasis, unspecified, Z00.01 - Encounter for general adult medical examination with abnormal findings, Z13.1 - Encounter for screening for diabetes mellitus, Z13.220 - Encounter for screening for lipoid disorders, Z71.89 - Other specified counseling, Z83.49 - Family history of other endocrine, nutritional and metabolic diseases, Z91.09 - Other allergy status, other than to drugs and biological substances
[2024-09-29 09:04] VITALS: BP 102/78; PULSE 67; RESP 15; TEMP 36.7; O2SAT 100; BMI 27.8
== END 2024-09-29 09:32 | disposition home or self-care (01) ==
PROVIDERS: PCP Internal Medicine; Visit Provider Internal Medicine
DX: Z00.01 Encounter for general adult medical examination with abnormal findings (principal); Z91.09 Other allergy status, other than to drugs and biological substances; L40.9 Psoriasis, unspecified; Z71.89 Other specified counseling; Z00.00 Encounter for general adult medical examination without abnormal findings

== ENCOUNTER 2024-09-29 08:18 | Outpatient (REF) | payer OTHER, SELFPAY ==
--- OUTSIDE RECORDS SUMMARY | 2024-09-29 10:16 | XMS_ITS | Clinical Summary ---
Author Organization [facility] Address [address] [place] [address] Phone Care Team Providers Care Chief Engineer'S Helper Name Role Phone Anette Hdz MD Primary Care Provider Immunizations Immunization Administration Dates Next Due DTP 12/02/1991 Hep B, ped/adol 06/27/1999,02/24/1999,01/25/1999 IPV 12/02/1991 MMR 01/25/1999 Meningococcal Conj (Menactra) MCV4P 12/30/2004 Td (adult) (MBL), 2 Lf tetan us toxoid, PF, adsorbed 01/25/1999 Family History Relation Name Status Comments Brother Alive Brother: Alive and well Father Alive Father: Hyperli pidemia Half-Sister Half sister (M) : Alive and well, Asthma Maternal Grandfather Materna l grandfather: , Cancer -bone Maternal Grandmother Materna l grandmother: , Cancer -espohogus Mother Alive Mother: Alive a nd well Paternal Grandfather Paterna l grandfather: Cancer -prostate, Social History Tobacco Use Types Packs/Day Years Used Date Smoking Tobacco: Never Assessed Comments Unknown Sex and Gender Information Value Date Recorded Sex Assigned at Not on file Legal Sex Female 4:11 PM EDT Gender Identity Not on file Sexual Orientation Not on file Plan of Treatment Health Maintenance Due Date Last Done Comments IPV Vaccines (2 of 3 - 4-dos e series) 12/30/1991 12/02/1991 DTaP,Tdap,and Td Vaccines (3 - Tdap) 01/26/1999 01/25/1999, 12/02/1991 Varicella Vaccines (1 of 2 - 13+ 2-dose series) 12/22/1999 Influenza Vaccines (#1) 2024 COVID-19 Vaccine (2023-2 5 season) 2024 MMR Vaccines Completed 01/25/1999 Hepatitis B Vaccines Completed 06/27/1999, 02/24/1999, 01/25/1999 Meningococcal Vaccine Completed 12/30/2004 HIB Vaccines Aged Out No longer eligi ble based on patient's age to complete this topic HPV Vaccines Aged Out No longer eligi ble based on patient's age to complete this topic Hepatitis A Vaccines Aged Out No long er eligible based on patient's age to complete this topic Men B Vaccine Aged Out No longer elig ible based on patient's age to complete this topic Pneumococcal Vaccine Aged Out No long er eligible based on patient's age to complete this topic Care Teams Chief Engineer'S Helper Relationship Specialty Start Date End Date Anette Hdz MD [address] [facility] [place] [id number] PCP - General 03/30/17
--- OUTSIDE RECORDS SUMMARY | 2024-09-29 10:16 | XMS_ITS | Encounter Summary ---
Author Organization [facility] Address [address] [place] [id number] Phone Care Team Providers Care Wardrobe Image Consultant Name Role Phone Anette Hdz MD Primary Care Provider [phone] Encounter Details Date Type Department Care Team (Late st Contact Info) Description 04/05/2017 Conversion Encounter [facility] [place] [address] [place] [address] Social History Tobacco Use Types Packs/Day Years Used Date Smoking Tobacco: Never Assessed Comments Unknown Sex and Gender Information Value Date Recorded Sex Assigned at Not on file Legal Sex Female 4:11 PM EDT Gender Identity Not on file Sexual Orientation Not on file documented as of this encounter Plan of Treatment Not on file documented as of this encounter Visit Diagnoses Not on filedocumented in this encounter Care Teams Wardrobe Image Consultant Relationship Specialty Start Date End Date Anette Hdz MD [address] [place] [address] PCP - General 03/30/17 documented as of this encounter
[2024-09-29 13:14] LABS: MANUAL DIFF FLAG NO
[2024-09-29 13:33] LABS: Basophils Percent Auto 0.6 % (0-2); Eosinophils Absolute Auto 0.3 X10*3/uL (0.0-0.4); Hematocrit 39.1 % (37.0-47.0); Imm Gran Abs Auto 0.01 X10*3/uL (0.00-0.03); Imm Gran Pct Auto 0.2 % (0.0-0.4); Lymphocytes Absolute Auto 2.4 X10*3/uL (1.2-4.9); Lymphocytes Percent Auto 38.9 % (20-40); Mean Corpuscular HGB Conc 33.2 g/dl (31.0-35.0); Mean Corpuscular Hemoglobin 30.5 pg (27.0-33.0); Mean Corpuscular Volume 91.8 fL (80.0-98.0); Mean Platelet Volume 10.3 fL (9.4-12.3); Monocytes Absolute Auto 0.4 X10*3/uL (0.1-1.2); Monocytes Percent Auto 5.6 % (2-11); Neutrophils Absolute Auto 3.1 x10*3/uL (2.0-8.3); Neutrophils Percent Auto 49.7 % (45-73); Platelet Count 283 X10*3/uL (160-400); Red Blood Count 4.26 X10*6/uL (4.20-5.50); Red Cell Distribution Width 11.2 % (11.0-16.0); White Blood Count 6.3 X10*3/uL (4.8-10.8)
[2024-09-29 13:45] LABS: Alanine Aminotransferase 15 U/L (0-31); Anion Gap 11 (12-20); Aspartate Amino Transferase 24 U/L (5-31); Blood Urea Nitrogen 16 mg/dL (9-16); Calcium 9.2 mg/dL (8.4-10.2); Carbon Dioxide 25 mmol/L (22-29); Chloride 108 mmol/L (96-108); Cholesterol 187 mg/dL (<200); Estimated Glomerular Filt Rate > 60; Glucose Fasting 86 mg/dL (60-99); HDL Cholesterol 75 mg/dL (>40); LDL Cholesterol Calculated 101 mg/dL (<100); Potassium 3.8 mmol/L (3.3-5.1); Sodium 140 mmol/L (135-145); Triglycerides 56 mg/dL (<150)
[2024-09-29 13:59] LABS: TSH reflex Free T4 1.62 uIU/mL (0.32-4.0); Vitamin D 25-OH Total 115.5 ng/mL (>30)
== END 2024-09-29 08:19 | disposition home or self-care (01) ==
LOC: HO.HMGCLDS 08:18
PROVIDERS: PCP Internal Medicine; Visit Provider Internal Medicine
DX: Z00.01 Encounter for general adult medical examination with abnormal findings (principal); L40.9 Psoriasis, unspecified; Z83.49 Family history of other endocrine, nutritional and metabolic diseases; Z71.89 Other specified counseling; Z91.09 Other allergy status, other than to drugs and biological substances; Z13.220 Encounter for screening for lipoid disorders; Z13.1 Encounter for screening for diabetes mellitus
CPT/HCPCS: 36415; 80048; 80061; 82306; 84443; 84450; 84460; 85025; 96127; 99395; 99497

== ENCOUNTER → 2025-01-27 11:54 | Outpatient (BNVA) | payer OTHER, SELFPAY | PROVIDERS: PCP Internal Medicine ==

== ENCOUNTER 2025-02-17 12:56 | Outpatient (AMB) | payer OTHER, SELFPAY ==
--- NOTE | 2025-02-17 13:02 | MHC.PC.OV ---
Vital Signs 02/17/25 13:04 Height 5 ft 5 in Weight 165 lb BMI 27.5 BP 110/70 Blood Pressure Location Rt brachial Position Sitting Respiration 16 Pulse 77 Pulse Source Pulse Oximeter Temp 98.1 F Temp Source Oral Pulse Oximetry (%) 100 Oxygen Delivery Method Room Air Intake Visit Reasons: Mental Health Intake Note: Pt is here today to discuss anxiety episodes Allergies environmental Allergy (Intermediate, Uncoded 02/17/25 13:11) Nasal congestion Medication List - Last Reconciled 02/17/25 by Lilian Joseph MD fexofenadine 60 mg PO BID Tobacco use date assessed: 02/17/25 Dental Screening Dental Screen Date: 02/17/25 Did you have a dental visit in the last 12 months?: Yes Did you have a dental problem in the last 6 months where you did not have access to dental care?: Yes Was dental information given to patient?: Patient has dentist HPI Mental Health HPI Details 39-year-old lady here today complaining of worsening anxiety attacks, with frequent episodes of panic attacks which occurs even while driving. She has been referred by Chanda to see a therapist, but no appointment yet for Psychiatry. Like to see if she can be started on something to help her control these anxiety attacks. [facility] Medical History (Updated 02/17/25 @ 13:32 by Lilian Joseph MD) Anxiety disorder with panic attacks Vaccine refused by patient Psoriasis of scalp Environmental allergies Surgical History History of placement of ear tubes Family History Maternal Aunt Ovarian cancer Thyroid disorder Brother Substance use disorder Maternal Uncle Mental health disorder Social History Housing: House Alcohol intake: current Alcohol intake frequency: holidays/special occasions only Patient Tobacco Use Status: Never used Tobacco e-Cigarette/Vaping Use: Never Used service: No Current occupational status: employed Current occupation: [employer] Sexual orientation: Straight/Heterosexual Gender identity: Female Cognitive needs: No Hearing needs: No Vision needs: No Female Reproductive History Menstrual Age of Menarche: 13 Questionnaire Thrive Questionnaire Date Thrive assessed: 02/03/25 I am a: Patient What is your living situation today?: I have a steady place to live Within the past 12 months, did the food you bought not last and you didn't have the money to get more?: Never true Within the past 12 months, did you worry whether your food would run out before you got money to buy more?: Never true Do you have trouble paying for medicines?: No Do you have trouble getting transportation to medical appointments?: No Do you have trouble paying your heating and electricity bill?: No Do you have trouble taking care of your child, family member or friend?: No Do you have trouble with day-to-day activities such as bathing, preparing meals, shopping, managing finances, etc.?: No Are you currently unemployed and looking for a job?: No Are you interested in more education?: No Please select the resources that you would like help with: None Currently or been in a relationship where the following occur: No concerns reported THRIVE Score: 0 RUSSELL-7 AMB Questionnaire RUSSELL-7 Date RUSSELL - 7 assessed: 02/17/25 Feeling nervous, anxious, or on edge: 3 = Nearly every day Not being able to stop or control worryin = Nearly every day Worrying too much about different things: 3 = Nearly every day Trouble relaxin = Nearly every day Being so restless that it is hard to sit still: 2 = More than half the days Becoming easily annoyed or irritable: 2 = More than half the days Feeling afraid as if something awful might happen: 2 = More than half the days Total RUSSELL-7 score (0-4 normal; 5-9 mild; 10-14 moderate; 15-21 severe): 18 Source: Developed by Drs. Serg Martinez, Mag Rodriguez, Mohan Jain and colleagues, with an educational paradise from [employer]. RUSSELL-7 Assessment Billing RUSSELL-7 Assessment Tool: RUSSELL-7 Assessment 05791 Review of Systems Const All systems reviewed & are unremarkable except as noted in HPI and below Physical exam (Primary Care) Vital Signs: Last Vital Signs Temp 98.1 F 02/17/25 13:04 Pulse 77 02/17/25 13:04 Resp 16 02/17/25 13:04 BP 110/70 02/17/25 13:04 Pulse Ox 100 02/17/25 13:04 Oxygen Delivery Method Room Air 02/17/25 13:04 BMI result Body Mass Index 27.5 Tobacco/Smoking Status: Tobacco use Status Tobacco use date assessed 02/17/25 02/17/25 13:06 Patient Tobacco Use Status Never used Tobacco 02/17/25 13:06 e-Cigarette/Vaping Use Never Used 02/17/25 13:06 Thrive Assessment: Date of Thrive Assessment Date Thrive assessed 09/22/24 02/17/25 13:06 Currently or been in a relationship where the following occur: No concerns reported Const General: comfortable and no acute distress Nutritional Appearance: overweight Orientation/consciousness: patient oriented x3 HENMT Face and sinus: Yes face symmetric Mouth: Normal oral and palatal mucosa present, oropharynx normal and moist mucous membranes Neck Neck: Yes full ROM, Yes no lymphadenopathy and Yes supple Thyroid: Thyroid normal Resp Effort & Inspection: normal respiratory effort and able to speak in complete sentences Auscultation: clear to auscultation bilaterally Cardio Palpation: normal PMI Rate: regular rate Rhythm: regular rhythm Heart sounds: S1 normal heart sound present and S2 normal heart sound present GI Inspection: Yes normal to inspection Palpation (GI): Soft to palpation, nontender, no guarding and no masses Auscultation: normal bowel sounds Skin General skin exam: no rashes or lesions noted Neuro General: patient oriented x3, gait normal, moves all extremities, Normal light touch and pain sensation, no focal motor deficits and CN's II-XI intact bilaterally Cognition (Neuro): normal cognition Gait exam (Neuro): Normal gait present Extrem General: Yes normal to inspection, Yes full ROM, Yes no joint enlargement, Yes no clubbing, cyanosis or edema, Yes no calf tenderness and Yes normal gait Psych Appearance: grossly normal and well kempt Mental Status: mental status grossly normal Speech and movement: Normal speech and movement present Affect: normal affect Thought process: Normal thought process present Coding Level of Care Code Est Pt Level 4 (07886) Diagnoses Anxiety disorder with panic attacks F41.9 Additional Codes RUSSELL-7 Assessment Billing - RUSSELL-7 Assessment Tool: RUSSELL-7 Assessment 86212 ([id number]) Assessment & Plan Assessment & Plan (1) Anxiety disorder with panic attacks: Code(s): F41.9 - Anxiety disorder, unspecified Category: Medical Plan: Was started on escitalopram 5 mg per tablet to take 1 tablet once a day in a.m. or night, if it makes her sleepy. Has been referred by Chanda to therapist for counseling and to sees psychiatrist which is already scheduled for later this month., discussed other ways to help deal with panic attacks. Will see her for follow-up in the event that she is still has not yet seen her psychiatrist and therapist in a month, otherwise to transfer her to their care afterwards. Medications: New escitalopram oxalate 5 mg PO DAILY 30 tabs 0RF
[2025-02-17 13:04] VITALS: BP 110/70; PULSE 77; RESP 16; TEMP 36.7; O2SAT 100; BMI 27.5
--- OUTSIDE RECORDS SUMMARY | 2025-02-17 13:54 | XMS_ITS | Clinical Summary ---
Author Organization [facility] Address [address] [place] [address] Phone Care Team Providers Care High School Academic Coach Name Role Phone Anette Hdz MD Primary Care Provider [phone] Immunizations Immunization Administration Dates Next Due DTP [...] age to complete this topic Care Teams High School Academic Coach Relationship Specialty Start Date End Date Anette Hdz MD [address] [facility] [place] [address] PCP - General 03/30/17
== END 2025-02-17 14:15 | disposition home or self-care (01) ==
LOC: HO.HMCC 12:57
PROVIDERS: PCP Internal Medicine; Visit Provider Internal Medicine
DX: F41.9 Anxiety disorder, unspecified (principal)

== ENCOUNTER → 2025-02-17 12:56 | Outpatient (BNVA) | payer OTHER, SELFPAY | PROVIDERS: PCP Internal Medicine; Visit Provider Internal Medicine | DX: F41.0 Panic disorder [episodic paroxysmal anxiety] (principal) | CPT/HCPCS: 96127; 99212 ==

== ENCOUNTER 2025-05-12 07:42 | Outpatient (AMB) | payer OTHER, SELFPAY ==
--- NOTE | 2025-05-12 07:43 | MHC.OFFVIS ---
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 No complaints. Last Pap/HPV was in 12/11, was ascus/HPV positive, HPV 16/18 negative, colpo biopsy ECC negative, this was preceded by similar Pap and colpo biopsy in 2022 [facility] Medical History ASCUS with positive high risk HPV cervical Anxiety disorder with panic attacks Vaccine refused by patient Psoriasis of scalp Environmental allergies Surgical History History of placement of ear tubes Family History Maternal Aunt Ovarian cancer Thyroid disorder Brother Substance use disorder Maternal Uncle Mental health disorder Social History Housing: House Alcohol intake: current Alcohol intake frequency: holidays/special occasions only Patient Tobacco Use Status: Never used Tobacco e-Cigarette/Vaping Use: Never Used service: No Current occupational status: employed Current occupation: [employer] Sexual orientation: Straight/Heterosexual Gender identity: Female Cognitive needs: No Hearing needs: No Vision needs: No Female Reproductive History Menstrual Age of Menarche: 13 Duration of menses: 3-5 days Date of last menstrual period: 04/15/25 Date of last pap smear: 12/05/23 History of abnormal pap smear: Yes (Ascus, HPV +) Review of Systems Const All systems reviewed & are unremarkable except as noted in HPI and below Card Reports as per HPI Resp Reports as per HPI GI Reports as per HPI and Reports no additional complaints Reports as per HPI Physical Exam Vital Signs: Last Vital Signs BP 120/78 05/12/25 07:48 BMI result Body Mass Index 27.5 Const General: cooperative, healthy appearing and comfortable Chest Chest palpation & inspection: normal inspection of the chest and normal palpation of entire chest wall Breast/axilla inspection: normal inspection of the breasts and normal inspection of the axillae Breast/axilla palpation: normal palpation of the breasts, normal palpation of the axillae and no axillary lymphadenopathy Resp Effort & Inspection: normal respiratory effort Auscultation: clear to auscultation bilaterally Percussion: percussion normal Cardio Palpation: normal PMI Rate: regular rate Rhythm: regular rhythm Heart sounds: no murmurs and no rubs Peripheral pulses: Peripheral pulses 2+ throughout GI Inspection: Yes normal to inspection Palpation (GI): Soft to palpation, nontender, no guarding, not rigid and No hepatosplenomegaly present Percussion: Yes normal to percussion Auscultation: normal bowel sounds Rectal Exam - Female: deferred General: Yes bladder normal to palpation External Female Exam: No lesion Speculum Exam - Vagina: normal appearance of the vagina, normal palpation, normal vaginal discharge and not erythematous Speculum Exam - Cervix: normal appearance of the cervix and normal palpation Bimanual exam- vagina & uterus: normal bimanual exam, normal palpation, uterine size normal, bladder normal to palpation, consistency normal and normal palpation Bimanual Exam- Adnexa, other: normal adnexae, no masses and no tenderness Assessment & Plan Assessment & Plan (1) Well woman exam: Code(s): Z01.419 - Encounter for gynecological examination (general) (routine) without abnormal findings Category: Medical Plan: Cotesting done. Counseled the patient about the recommended dietary allowance of 1000 mg of Calcium & 600 IU of vitamin D. The patient was instructed to perform monthly self-breast exams and to schedule an annual exam in a year; All questions answered and the patient verbalized understanding. Instructed the patient to schedule annual exam in a year Coding Level of Care Code Est Pt Prev Care 18-39y(96161) Diagnoses Well woman exam Z01.419
--- OUTSIDE RECORDS SUMMARY | 2025-05-12 07:45 | XMS_ITS | Clinical Summary ---
Author Organization [facility] Address [address] [place] [address] Phone Care Team Providers Care Railroad Wheels And Axle Inspector Name Role Phone Anetet Hdz MD Primary Care Provider [phone] Immunizations Immunization Administration Dates Next Due DTP [...] of 2 - 13+ 2-dose series) 12/22/1999 HPV Vaccines (1 - 3-dose SCD M series) 2013 Influenza Vaccines (#1) 2025 COVID-19 Vaccine (2023-2 5 season) 2025 MMR Vaccines Completed 01/25/1999 Hepatitis B Vaccines [...] age to complete this topic Care Teams Railroad Wheels And Axle Inspector Relationship Specialty Start Date End Date Anette Hdz MD [address] [place] [address] [place] [id number] PCP - General 03/30/17
--- OUTSIDE RECORDS SUMMARY | 2025-05-12 07:45 | XMS_ITS | Encounter Summary ---
Author Organization [facility] Address [address] [place] [phone] Phone Care Team Providers Care Flame Annealing Machine Operator Name Role Phone Anette Hdz MD Primary Care Provider [phone] Encounter Details Date Type Department Care Team (Late st Contact Info) Description 04/05/2017 Conversion Encounter [facility] [place] [address] [place] [address] Social History Tobacco Use Types Packs/Day Years [...] on filedocumented in this encounter Care Teams Flame Annealing Machine Operator Relationship Specialty Start Date End Date Anette Hdz MD [address] [place] [address] PCP - General 03/30/17 documented as of this encounter
[2025-05-12 07:48] VITALS: BP 120/78; BMI 27.5
== END 2025-05-12 08:18 | disposition home or self-care (01) ==
LOC: HO.HWS 07:42
PROVIDERS: PCP Internal Medicine; Visit Provider Obstetrics & Gynecology
DX: Z01.419 Encounter for gynecological examination (general) (routine) without abnormal findings (principal)
CPT/HCPCS: 99395; 99459

== ENCOUNTER 2025-05-12 07:42 | Outpatient (REF) | payer OTHER, SELFPAY | END 2025-05-12 07:43 | disposition home or self-care (01) | LOC: HO.LNP 07:42 | PROVIDERS: PCP Internal Medicine; Visit Provider Obstetrics & Gynecology | DX: Z01.419 Encounter for gynecological examination (general) (routine) without abnormal findings (principal) | CPT/HCPCS: 87626; 88175; 99395 ==